=== PATIENT | female | born 1990 | race Caucasian/White ===

== ENCOUNTER 2017-09-01 12:22 | Emergency (ER) | END 2017-09-01 15:13 | disposition home or self-care (01) ==

== ENCOUNTER 2018-09-25 01:51 | Emergency (ER) | payer SELFPAY ==
[~2018-09-25] VITALS: Ht 157.5 cm; Wt 68.4 kg
[~2018-09-25 01:51] MED LIST: IBUP-1542 PO
[2018-09-25 01:58] VITALS: BP 156/88; PULSE 75; RESP 18; Ht 157.5 cm; Wt 68.4 kg
== END 2018-09-25 04:50 | disposition left against medical advice (07) ==
LOC: FTE 01:51
DX: Z53.21 Procedure and treatment not carried out due to patient leaving prior to being seen by health care provider (principal)